=== PATIENT | female | born 1965 | race African-American/Black ===

== ENCOUNTER 2021-01-27 06:05 | Day surgery (SDC) | payer OTHER ==
[2021-01-22 09:10] LABS: Basophils # (auto) 0.1 10 ^3/uL (0-0.2); Basophils % (auto) 1.3 % (0.0-2.0); Eosinophils # (auto) 0 10 ^3/uL (0-0.8); Eosinophils % (auto) 0.8 % (0.0-7.0); Hematocrit 38.3 % (36.0-46.0); Hemoglobin 13.3 g/dL (12.2-16.2); Lymphocytes # (auto) 1.8 10 ^3/uL (0.4-5.4); Lymphocytes % (auto) 43.2 % (10.0-50.0); Mean Corpuscular Hemoglobin 29.3 pg (28.0-32.0); Mean Corpuscular Hgb Conc. 34.6 g/dL (32.0-36.0); Mean Corpuscular Volume 84.7 fL (80.0-100.0); Monocytes # (auto) 0.4 10 ^3/uL (0-1.3); Neutrophils # (auto) 1.9 10 ^3/uL (1.6-8.6); Neutrophils % (auto) 45.7 % (37.0-80.0); Nucleated Red Blood Cells % 0.1 %; Red Blood Cells 4.53 10^6/uL (4.0-5.20); Red Cell Distribution Width 13.3 % (11.8-14.3); White Blood Cell 4.1 10^3/uL (4.4-10.8)
[2021-01-22 09:22] LABS: Albumin 3.9 g/dL (3.4-5.0); BUN/Creatinine Ratio 16.9; Calcium 9.3 mg/dL (8.5-10.1); Potassium 3.9 mmol/L (3.5-5.1)
[2021-01-22 09:30] LABS: Bilirubin, Total 0.4 mg/dL (0.2-1.0)
[2021-01-22 10:35] LABS: Urine Bacteria NONE SEEN /hpf (None Seen); Urine Blood Negative /uL (Negative); Urine Specific Gravity 1.025 (1.001-1.035); Urine WBC 1 /hpf (0 - 5)
[~2021-01-27] VITALS: Ht 177.8 cm; Wt 79.4 kg
[~2021-01-27 06:05] MED LIST: ACE3T PO; AMIT150T3 PO; CHOL20007 OR; GABA300C10 PO; METH500T22 PO; OMEG1CAP59 PO; PANT1INJ3 PO
[2021-01-27] MEDS ORDERED: BUPIVACAINE 0.5% P/F INJ 10 ML VIAL ONE (07:04)
[2021-01-27] MEDS ORDERED: LIDOCAINE 1%-Mpf/Epinephrine 1:200,000 ONE (07:04)
[2021-01-27] MEDS ORDERED: SODIUM CHLORIDE LOCK 10 ML ONE (07:13)
[2021-01-27] MEDS ORDERED: fentaNYL CITRATE 100 MCG/2 ML VL ONE (07:13)
[2021-01-27] MEDS ORDERED: PROPOFOL 10 MG/ML 20 ML IV ONE ×2 (07:13→09:16)
[2021-01-27] MEDS ORDERED: ONDANSETRON HCL 4 MG/2 ML VIAL ONE (07:13)
[2021-01-27] MEDS ORDERED: MIDAZOLAM HCL 2MG/2ML 2ml VIAL (1mg/ml) ONE (07:13)
[2021-01-27] MEDS ORDERED: LIDOCAINE 2% (LOCAL ANESTH.) PF 5ml SDV ONE (07:14)
[2021-01-27] MEDS ORDERED: ceFAZolin 1GM/50ML 100 ML IV ONE (07:25)
[2021-01-27] MEDS ORDERED: METOCLOPRAMIDE HCL 5MG/ml INJ 2ml VIAL IV PRN (07:45)
[2021-01-27] MEDS ORDERED: MORPHINE SULFATE 4 MG/ML SYR/VIAL IV PRN (07:45)
[2021-01-27] MEDS ORDERED: HYDROmorphone HCL 2 MG/ML VL IV PRN (07:45)
[2021-01-27] MEDS ORDERED: HYDROmorphone HCL 2 MG/ML VL ONE (11:10)
[2021-01-27 11:15] VITALS: BP 134/74
== END 2021-01-27 11:40 | disposition home or self-care (01) ==
LOC: SUR 06:05
PROVIDERS: ATTEND Podiatrist
DX: M20.12 Hallux valgus (acquired), left foot (principal); I10 Essential (primary) hypertension; G89.29 Other chronic pain; K21.9 Gastro-esophageal reflux disease without esophagitis; Z98.890 Other specified postprocedural states; Z79.899 Other long term (current) drug therapy; Z98.51 Tubal ligation status; Z20.822 Contact with and (suspected) exposure to COVID-19
CPT/HCPCS: 28297; 28308; 36415; 73620; 76001; 80053; 81001; 85025; C1769; J0690; J1170; J2001; J2250; J2405; J2704; J3010; J3490; J7030; U0003